=== PATIENT | female | born 1975 | race Caucasian/White ===

== ENCOUNTER 2024-06-14 18:11 | Emergency (ER) | payer SELFPAY ==
[~2024-06-14] VITALS: Ht 172.7 cm; Wt 75.0 kg
[2024-06-14 18:30] VITALS: TEMP 98.5; O2SAT 100
[2024-06-14] MEDS ORDERED: MECLIZINE 25MG TABLET PO ONE (19:00)
[2024-06-14] MEDS: SODIUM CHLORIDE 0.9% 1,000 ML IV ONE (19:49)
[2024-06-14 19:54] LABS: BASOPHILS % 0.3 % (0.0-2.0); EOSINOPHILS % 0.2 % (0.0-5.0); HEMATOCRIT. 34.1 % (36.0-48.0); LYMPHOCYTES % 10.7 % (20.0-50.0); MEAN CORPUSCULAR HEMOGLOBIN 27.3 pg (28.0-32.0); MEAN CORPUSCULAR HGB CONC 32.3 g/dL (31.0-37.0); MEAN CORPUSCULAR VOLUME 84.5 fL (81.0-99.0); MEAN PLATELET VOLUME 9.8 fl (7.4-10.4); MONOCYTES % 5.5 % (2.0-8.0); NEUTROPHILS % 83.3 % (40.0-76.0); PLATELET 195 x1000/uL (130-400); RED BLOOD CELL COUNT 4.04 mill/uL (4.2-5.4); RED CELL DISTRIBUTION WIDTH 13.9 % (11.6-14.6)
[2024-06-14 20:01] LABS: CHLORIDE 108 mEq/L (98-107); POTASSIUM 3.9 mEq/L (3.5-5.1); SODIUM 138 mEq/L (136-145)
[2024-06-14 20:02] LABS: CARBON DIOXIDE 24 mEq/L (21-32)
[2024-06-14 20:03] LABS: CALCIUM 9.2 mg/dL (8.7-10.4); HCG SCREEN NEGATIVE
[2024-06-14] MEDS: PREDNISONE 20MG TABLET PO ONE (20:06)
[2024-06-14 20:07] LABS: CREATININE 0.9 mg/dL (0.6-1.0); GLUCOSE 105 mg/dL (70-105)
[2024-06-14 20:08] LABS: UREA NITROGEN BLOOD 14 mg/dL (9-23)
[2024-06-14] MEDS: LORAZEPAM 2MG/ML INJ IV ONE (20:08)
[2024-06-14 20:09] LABS: ALANINE AMINOTRANSFERASE 8 IU/L (10-49); ALBUMIN 4.4 g/dL (3.2-4.8); ASPARTATE AMINOTRANSFERASE 18 IU/L (<34)
[2024-06-14] MEDS: ONDANSETRON HCL 4MG/2ML INJ IV ONE (20:09)
[2024-06-14 20:10] LABS: BILIRUBIN TOTAL 1.1 mg/dL (0.1-1.0); PROTEIN TOTAL 6.7 g/dL (6.0-8.3)
[2024-06-14 20:18] LABS: TROPONIN I HIGH SENSITIVITY < 4 ng/L (3.0-34)
[2024-06-14] MEDS: MECLIZINE 12.5MG TABLET PO NR (20:43)
[2024-06-14 23:36] VITALS: BP 119/78; PULSE 59; RESP 16; O2SAT 98
== END 2024-06-14 23:37 | disposition home or self-care (01) ==
LOC: ER 18:11
DX: R42 Dizziness and giddiness (principal); H83.09 Labyrinthitis, unspecified ear; Z98.890 Other specified postprocedural states
CPT/HCPCS: 99285; 96374; 70450; 71045; 96361; 96375; 80053; 82962; 84703; 85025; 84484; 36415; 93005; J8597; J7512; J2060; J2405; J7030